=== PATIENT | female | born 1950 | race Caucasian/White ===

== ENCOUNTER 2018-05-05 07:10 | Emergency (ER) | payer MEDICARE, BC ==
[2018-05-05 07:30] VITALS: BP 132/75
--- NOTE | 2018-05-05 10:24 | UC ---
Adan Gomez Gabriel, scribed for Hamilton Scott MD on 05/05/18 at 0727 . Skin Complaint HPI - HPI Summary HPI Summary: This patient is a 67 year old F [place] [facility] [place] tick bite at her left popliteal fossa that she noticed last night. She had her remove it but states it fell apart on removal. She states the exposure most likely happened 3 days ago. Pt denies rash. She has had prior tick exposure. Hx breast ca - History of Current Complaint Time Seen by Provider: 05/05/18 07:17 Stated Complaint: TICK BITE Hx Obtained From: Patient Onset/Duration: Lasting Days - 1, Resolved Timing: Constant Onset Severity: Mild Current Severity: None Pain Intensity: 0 Pain Scale Used: 0-10 Numeric Location: Other - left knee Associated Signs & Symptoms: Positive: Negative - fever. Negative: Rash - Allergy/Home Medications Allergies/Adverse Reactions: Allergies Allergy/AdvReac Type Severity Reaction Status Date / Time oxcarbazepine Allergy Rash Verified 05/05/18 07:32 [From Trileptal] Penicillins Allergy Rash Verified 05/05/18 07:31 Sulfa (Sulfonamide Allergy Rash Verified 05/05/18 07:31 Antibiotics) Home Medications: Home Medications Anastrozole (NF) [Arimidex (NF)] 1 mg PO DAILY 05/05/18 [History Confirmed 05/05] Review of Systems Constitutional: Negative - fever Skin: Negative - rash, Other - tick bite All Other Systems Reviewed And Are Negative: Yes PMH/Surg Hx/FS Hx/Imm Hx Neurological History: Seizures Cancer History: Breast Cancer Other History Of: Negative For: Anticoagulant Therapy - Family History Known Family History: Negative: Blood Disorder - Social History Lives: With Family Alcohol Use: None Substance Use Type: None Smoking Status (MU): Never Smoked Tobacco Physical Exam - Summary Physical Exam Summary: General: well-appearing, no pain distress Skin: on the left posterior thigh there is a one mm scab, no obvious tick parts inside, no rash Head: normal Eyes: EOMI, AMIE ENT: normal Neck: supple, nontender Respiratory: CTA, breath sounds present Cardiovascular: RRR Abdomen: soft, nontender Bowel: present Musculoskeletal: normal, strength/ROM intact Neurological: sensory/motor intact, A&O x3 Psychological: affect/mood appropriate Triage Information Reviewed: Yes Vital Signs: Initial Vital Signs Temp 98 F 05/05/18 07:22 Pulse 73 05/05/18 07:22 Resp 17 05/05/18 07:22 BP 132/75 05/05/18 07:22 Pulse Ox 100 05/05/18 07:22 Vital Signs Reviewed: Yes Course/Dx - Course Course Of Treatment: NO RASH - Diagnoses Provider Diagnoses: LEFT LEG TICK BITE Discharge - Sign-Out/Discharge Documenting (check all that apply): Discharge/Admit/Transfer - Discharge Plan Condition: Stable Disposition: HOME Prescriptions: DOXYcycline CAP(*) [DOXYcycline 100MG CAP(*)] 200 mg PO ONCE #2 cap Patient Education Materials: Tick Bite (ED) Referrals: Poonma FREEDMAN,Bernardino Almendarez [Primary Care Provider] - Additional Instructions: FOLLOW UP WITH YOUR DOCTOR IF YOU ARE NOT COMPLETELY IMPROVED. GET RECHECKED FOR ANY WORSENING OF YOUR CONDITION OR QUESTIONS OR CONCERNS. - Billing Disposition and Condition Condition: STABLE Disposition: Home The documentation as recorded by the Adan blackmon Gabriel accurately reflects the service I personally performed and the decisions made by me, Hamilton Scott MD.
== END 2018-05-05 07:45 | disposition home or self-care (01) ==
LOC: UCEAST 07:10
DX: S80.862A Insect bite (nonvenomous), left lower leg, initial encounter (principal); W57.XXXA Bitten or stung by nonvenomous insect and other nonvenomous arthropods, initial encounter; Y93.9 Activity, unspecified; Y99.9 Unspecified external cause status; Z88.0 Allergy status to penicillin; Z88.2 Allergy status to sulfonamides
CPT/HCPCS: 99212; G0463